=== PATIENT | male | born 1950 | race Caucasian/White ===

== ENCOUNTER 2022-07-09 08:37 | Emergency (ER) | payer MEDICARE, SELFPAY ==
[2022-07-09] MEDS ORDERED: ONDANSETRON 4 MG/2 ML VIAL ONE (09:09)
[2022-07-09 09:14] LABS: Absolute Lymphocytes (CBC) 1.2 K/uL (0.7-4.9); Hematocrit 48.5 % (39.6-49.0); Lymphocytes % 11.3 % (15.3-44.8); MCV 94.6 fL (80-100); MPV 7.8 fL (7.6-11.3); RBC Red Blood Cell Count 5.13 M/uL (4.33-5.43)
[2022-07-09 09:25] LABS: Potassium 3.6 mmol/L (3.5-5.1)
[2022-07-09 09:41] LABS: CKMB Creatine Kinase MB 2.7 ng/mL (1.0-3.6); Protime INR 0.98
[2022-07-09 09:43] LABS: Albumin 3.7 g/dL (3.4-5.0); Bilirubin Direct 0.2 mg/dL (0-0.2); Bilirubin Total 0.6 mg/dL (0.2-1.0); Magnesium 1.9 mg/dL (1.8-2.4); Protein, Total 7.6 g/dL (6.4-8.2); Troponin High Sensitivity 50.8 pg/mL (<58.9)
--- NOTE | 2022-07-09 10:01 | RAD REPORT ---
EXAM DESCRIPTION: CT - Head C Spine Cap Wo Con - 07/09/2022 9:19 am CLINICAL HISTORY: Trauma, head and neck injury. Chest, abdomen and pelvis pain. fall COMPARISON: No comparisons TECHNIQUE: CT head without contrast. CT cervical spine without contrast with coronal and sagittal reformatted images. CT chest, abdomen and pelvis without contrast with coronal and sagittal reformatted images of the spi ne. All CT scans are performed using dose optimization technique as appropriate and may include automated exposure control or mA/KV adjustment according to patient size. FINDINGS: CT HEAD WITHOUT CONTRAST: Along the left convexity there is a thin 2-3 mm extra-axial hyperdense collection likely representing small subdural hematoma. Advanced brain atrophy with advanced periventricular and deep white matter chronic microvascular ischemia also seen. No midline shift evident. No hydrocephalus. The paranasal sinuses and mastoids are essentially clear. There is a mottled appearance to the calvar ium. Evidence of prior left posterior calvarium marika-hole. CT CERVICAL SPINE WITHOUT CONTRAST: No fracture or subluxation. Moderate midcervical degenerative changes. The prevertebral soft tissues are normal in thickness.Left carotid atherosclerosis. CT CHEST, ABDOMEN, PELVIS WITHOUT CONTRAST: NOTE: Lack of contrast is a significant limitation in the assessment of trauma related findings. Spec ifically, solid organ, vascular and bowel evaluation is significantly limited. Mild opacities are present in both lung bases most compatible with atelectasis.No pneumothorax or per icardial/pleural fluid. No evidence of intra-abdominal visceral injury, free fluid or free air is seen within the above detai led limitations. Moderate fat containing inguinal hernia. No concerning pelvic findings. There is evidence of a mild fracture involving the lateral right eleventh rib. IMPRESSION: 2-3 mm hyperdense collection along the left convexity likely acute subdural hematoma. No midline shift. Lateral right eleventh rib fracture noted, age indeterminate. Findings were discussed with in the emergency room 10 a.m. 07/09/2022 by telephone.
--- NOTE | 2022-07-09 10:11 | RAD REPORT ---
EXAM DESCRIPTION: RAD - C Spine Single View - 07/09/2022 9:45 am CLINICAL HISTORY: fall Trauma, fall COMPARISON: No comparisons FINDINGS: Cross-table lateral projection only submitted, limiting assessment. Moderate multilevel ce rvical degenerative changes are noted. No prevertebral swelling seen.
--- NOTE | 2022-07-09 10:12 | RAD REPORT ---
EXAM DESCRIPTION: RAD - Elbow Left 3 View - 07/09/2022 9:45 am CLINICAL HISTORY: PAIN COMPARISON: No comparisons FINDINGS: Small laceration is seen in the olecranon region. No acute fracture or dislocation.
--- NOTE | 2022-07-09 10:13 | RAD REPORT ---
EXAM DESCRIPTION: RAD - Pelvis - 07/09/2022 9:45 am CLINICAL HISTORY: fall Fall, pelvic pain COMPARISON: No comparisons FINDINGS: No evidence of fracture or dislocation seen.
[2022-07-09 10:22] LABS: SARS-CoV-2 Antigen Rapid Res Negative (Negative)
[2022-07-09] MEDS ORDERED: CEFAZOLIN SODIUM 1 GM/VIAL ONE (10:46)
[2022-07-09] MEDS ORDERED: TETANUS & DIPHTHERIA TOX,ADULT 0.5 ML VIAL ONE (10:46)
[2022-07-09] MEDS ORDERED: NA CHLORIDE 0.9% 100 ML IV ONE ×2 (10:47→11:11)
[2022-07-09] MEDS ORDERED: LIDOCAINE 1% MPF 2 ML AMPULE ONE (10:56)
--- NOTE | 2022-07-09 11:08 | RAD REPORT ---
EXAM DESCRIPTION: CT - Chest For Pe Angio - 07/09/2022 10:39 am CLINICAL HISTORY: Chest pain. Chest trauma COMPARISON: No comparisons TECHNIQUE: CT angiogram of the pulmonary arteries was performed with MIP. All CT scans are performed using dose optimization technique as appropriate and may include automated exposure control or mA/KV adjustment according to patient size. FINDINGS: No evidence of pulmonary thromboembolism. Thoracic aortic assessment is suboptimal due to contrast bolus. The heart is enlarged. Mild interstitial pulmonary edema seen. Trace pleural fluid bilaterally slightly greater on the right. The inferior thoracic ribs not included. There is no fracture seen within the included chest region. IMPRESSION: No evidence of pulmonary thromboembolism. Mild CHF pattern.
[2022-07-09] MEDS ORDERED: LEVETIRACETAM 500 MG/5 ML VIAL IV ONE (11:11)
--- NOTE | 2022-07-09 11:22 | ER ---
Nurse's Notes [facility] Name: Elie Rashid Age: 71 yrs Sex: Male : 1950 Arrival Date: 07/09/2022 Time: 08:42 Bed 4 Private MD: Diagnosis: History of falling;Fall on same level, unspecified;Conductive hearing loss, unspecified;Laceration without foreign body of other part of head, initial encounter;Laceration without foreign body of left elbow;Traumatic subdural hemorrhage-left 3 mm Presentation: 07/09 08:30 Chief complaint: EMS states: toned out to PT home for a fall. family found PT on tp1 ground, they believe he fell at 3 am. PT main complaint is dizziness. EMS reports PT hit head and has no memory of fall. PT has laceration to carty of head and left elbow, bleeding controlled. EMS reports dysrhythmia on EKG. 08:30 Method Of Arrival: EMS: [facility] tp1 08:30 Coronavirus screen: Vaccine status: Patient reports being unvaccinated. Ebola Screen: tp1 Patient denies exposure to infectious person. Patient denies travel to an Ebola-affected area in the 21 days before illness onset. Initial Sepsis Screen: Does the patient meet any 2 criteria? RR > 20 per min. Does the patient have a suspected source of infection? No. Patient's initial sepsis screen is negative. Risk Assessment: Do you want to hurt yourself or someone else? Patient reports no desire to harm self or others. Onset of symptoms was July 09, 2022. 08:30 Acuity: DANILO 2 tp1 Triage Assessment: 08:30 General: Appears in no apparent distress. uncomfortable, Behavior is cooperative, tp1 anxious. Pain: Complains of pain in left elbow Pain does not radiate. Pain currently is 10 out of 10 on a pain scale. Pain began 3 am. 08:30 EENT: Nares are clear. Neuro: Level of Consciousness is awake, alert, obeys commands, tp1 Oriented to person, place, time, situation, Reports dizziness. Cardiovascular: Denies chest pain, shortness of breath, Capillary refill < 3 seconds in bilateral fingers Patient's skin is warm and dry. Respiratory: Airway is patent Respiratory effort is even, unlabored. GI: Abdomen is flat, non-distended, Reports nausea, vomiting. : No signs and/or symptoms were reported regarding the genitourinary system. Derm: Skin is pink, warm \T\ dry. Musculoskeletal: Circulation, motion, and sensation intact. Injury Description: Abrasion sustained to scalp Laceration sustained to left elbow a small amount of bleeding noted at this time. Historical: - Allergies: 08:55 No Known Allergies; tp1 - Home Meds: 08:55 lamotrigine oral [Active]; quetiapine oral [Active]; tp1 - PMHx: 08:55 Seizure; brain cancer; lung cancer; skin cancer; tp1 - Immunization history:: Client reports having NOT received the Covid vaccine. - Social history:: Smoking status: unknown. - Family history:: not pertinent. Screenin:18 Abuse screen: Denies threats or abuse. Denies injuries from another. Nutritional tp1 screening: No deficits noted. Tuberculosis screening: No symptoms or risk factors identified. Fall Risk Fall in past 12 months (25 points). No secondary diagnosis (0 pts). IV access (20 points). Ambulatory Aid- None/Bed Rest/Nurse Assist (0 pts). Gait- Normal/Bed Rest/Wheelchair (0 pts) Mental Status- Oriented to own ability (0 pts). Total Rangel Fall Scale indicates High Risk Score (45 or more points). Fall prevention measures have been instituted. Side Rails Up X 2 Frequent Obs/Assessments Occuring As available patient and family educated on Fall Prevention Program and Strategies. Primary Survey: 08:35 NO uncontrolled hemorrhage observed. A: The client is alert. No supplemental oxygen in vg1 use on arrival. Breathing/Chest: Spontaneous respiratory effort, equal unlabored respirations, breath sounds clear bilaterally, regular pattern, symmetrical chest rise and fall. Respiratory effort: spontaneous, unlabored, Breath sounds: clear, bilaterally. Circulation: Hemorrhage: No external hemorrhage noted. Pulses: palpable right radial artery, right dorsalis pedis artery, left radial artery and left dorsalis pedis artery. Skin color: pink. Disability Pupils are equal, round, reactive to light and accommodation. Client is alert. Exposure/Environment: All clothing and personal items were removed. Forensic evidence collection is not deemed to be indicated at this time. Items placed in patient belonging bag. There is no evidence of uncontrolled external bleeding. Obvious injury(ies) are noted at this time: appears to have an abrasion to Left side of scalp and laceration to Left elbow; bleeding contol A warming method has been applied: A warm blanket has been provided to the patient. Secondary Survey: 08:35 HEENT: Head Other appears to have an abrasion to left side of scalp Face No vg1 injury/deformity. Gastrointestinal: Abdomen is soft, Patient vomited prior to arrival. Patient reports Nausea. : No deficits noted. Urine is clear. Musculoskeletal: Capillary refill < 3 seconds, in bilateral fingers. pt c/o Left elbow pain; appears to have a laceration to Left elbow. Assessment: 08:30 Reassessment: see triage notes. tp1 09:07 Reassessment: received VO from to administer Zofran 4mg IVP X1. tp1 09:18 Reassessment: escorted to CT via stretcher by [employer]. tp1 09:53 Reassessment: returned from CT. tp1 09:55 Reassessment: Patient appears in no apparent distress at this time. No changes from tp1 previously documented assessment. Patient and/or family updated on plan of care and expected duration. Pain level reassessed. Patient is alert, oriented x 3, equal unlabored respirations, skin warm/dry/pink. continues to CO dizziness Patient denies pain at this time. 10:37 Reassessment: report given to Greg PARKS. tp1 10:55 Reassessment: Patient appears in no apparent distress at this time. No changes from tp1 previously documented assessment. Patient is alert, oriented x 3, equal unlabored respirations, skin warm/dry/pink. Patient denies pain at this time. 10:56 Reassessment: PT tolerated suture repair to the left elbow well, gauze and coband tp1 dressing applied. 11:16 Reassessment: Ancef infusion paused, Keppra infusion started. tp1 11:44 Reassessment: Ancef restarted. tp1 Vital Signs: 08:30 BP 181 / 79; Pulse 62; Resp 23; Temp 97.7(TE); Pulse Ox 100% on R/A; Weight 85 kg; tp1 Height 6 ft. 2 in. (187.96 cm); 10:00 BP 143 / 64; Pulse 60; Resp 22; Pulse Ox 96% on R/A; tp1 11:00 BP 143 / 100; Pulse 63; Resp 17; Pulse Ox 96% on R/A; tp1 12:08 BP 147 / 87; Pulse 55; Resp 18; Pulse Ox 96% on R/A; tp1 08:30 Body Mass Index 24.06 (85.00 kg, 187.96 cm) tp1 [place] Coma Score: 08:35 Eye Response: spontaneous(4). Verbal Response: oriented(5). Motor Response: obeys vg1 commands(6). Total: 15. 10:00 Eye Response: spontaneous(4). Verbal Response: oriented(5). Motor Response: obeys tp1 commands(6). Total: 15. 11:00 Eye Response: spontaneous(4). Verbal Response: oriented(5). Motor Response: obeys tp1 commands(6). Total: 15. 12:08 Eye Response: spontaneous(4). Verbal Response: oriented(5). Motor Response: obeys tp1 commands(6). Total: 15. Trauma Score (Adult): 08:35 Eye Response: spontaneous(1); Verbal Response: oriented(1); Motor Response: obeys vg1 commands(2); Systolic BP: > 89 mm Hg(4); Respiratory Rate: 10 to 29 per min(4); Flora Score: 15; Trauma Score: 12 10:00 Eye Response: spontaneous(1); Verbal Response: oriented(1); Motor Response: obeys tp1 commands(2); Systolic BP: > 89 mm Hg(4); Respiratory Rate: 10 to 29 per min(4); [place] Score: 15; Trauma Score: 12 11:00 Eye Response: spontaneous(1); Verbal Response: oriented(1); Motor Response: obeys tp1 commands(2); Systolic BP: > 89 mm Hg(4); Respiratory Rate: 10 to 29 per min(4); [place] Score: 15; Trauma Score: 12 12:08 Eye Response: spontaneous(1); Verbal Response: oriented(1); Motor Response: obeys tp1 commands(2); Systolic BP: > 89 mm Hg(4); Respiratory Rate: 10 to 29 per min(4); Flora Score: 15; Trauma Score: 12 ED Course: 08:35 Patient has correct armband on for positive identification. Placed in gown. Bed in low vg1 position. Call light in reach. Side rails up X2. 08:35 Patient maintains SpO2 saturation greater than 95% on room air. vg1 08:42 Patient arrived in ED. eb 08:49 Martina Hart, CHARLY is Primary Nurse. tp1 08:50 Kike Anderson MD is Attending Physician. aruna 08:54 Triage completed. tp1 09:00 EKG done. Maintain EMS IV. Dressing intact. Good blood return noted. Site clean \T\ dry. tp1 Gauge \T\ site: 20 G L FA. 09:20 CT Traumagram (Head C Spine CAP wo con) In Process Unspecified. EDMS 09:47 Elbow Left 3 View XRAY In Process Unspecified. EDMS 09:47 XRAY C Spine Single View In Process Unspecified. EDMS 09:47 XRAY Chest (1 view) In Process Unspecified. EDMS 09:47 XRAY Pelvis In Process Unspecified. EDMS 09:53 initiated a transfer with [place] from the [facility]. eb 09:57 connected the neurosurgeon hotel concierge for [facility] with for patient transfer consultation. 10:00 administrative approval given by [place] Rowe Rn/ patient has been accepted to [facility] ER/ Dr. Raygoza has accepted the patient in transfer/ report to be called to [phone]. 10:05 COVID swab sent to lab. tp1 10:06 SARS RAPID Sent. tp1 10:41 CT Chest For PE Angio In Process Unspecified. EDMS 10:56 Assist provider with laceration repair on left elbow using Set up tray. Performed by tp1 Kike Anderson MD Dressed with 4X4s, coband Patient tolerated well. 11:50 US Extremity Venous W Compression Nitin In Process Unspecified. EDMS 12:08 Patient transferred, IV remains in place. tp1 Administered Medications: 09:11 Drug: Zofran (Ondansetron) 4 mg Route: IVP; Site: left forearm; tp1 12:08 Follow up: Response: Nausea is decreased tp1 11:00 Drug: Tetanus Toxoid,Adsorbed 0.5 ml {Global Manager: [employer]. Exp: 02/06/2024. Lot tp1 #: [id number]. } Route: IM; Site: right deltoid; 12:07 Follow up: Response: No adverse reaction tp1 11:05 Drug: Ancef (cefazolin) 1 grams Route: IVPB; Site: left femoral; tp1 12:07 Follow up: IV Status: Infusion continued upon transfer tp1 11:16 Drug: Keppra (levETIRAcetam) 1000 mg Route: IV; Rate: per protocol; Site: left forearm; tp1 11:32 Follow up: IV Status: Completed infusion; IV Intake: 100ml vg1 11:19 CANCELLED (Physician Discretion): Lidocaine (1 %) 5 ml 5 ml Infiltration once; to tp1 bedside 11:40 Drug: Lasix (furosemide) 20 mg Route: IVP; Site: left forearm; tp1 12:06 Follow up: Response: No adverse reaction tp1 Medication: 11:32 Vaccine Information Statement (VIS) provided today. Questions and/or concerns tp1 addressed. VIS edition date: April 24, 2021. Intake: 11:32 IV: 100ml; Total: 100ml. vg1 Outcome: 11:22 ER care complete, transfer ordered by MD. valdovinos 12:09 Transferred by ground EMS to [facility], Transfer form completed. tp1 12:09 Condition: good 12:09 Discharge instructions given to patient, friend, Instructed on discharge instructions, Demonstrated understanding of instructions. 12:10 Patient left the ED. tp1 Signatures: Dispatcher [employer] EDMS Kike Anderson MD MD cha Botello, Elizabeth eb Garcia, Victoria, RN RN vg1 Martina Hart RN RN tp1 Corrections: (The following items were deleted from the chart) 08:56 08:30 Pulse 62bpm; Resp 23bpm; Pulse Ox 100% RA; Temp 97.7F Temporal; 85 kg; Height 6 tp1 ft. 2 in.; BMI: 24.0; tp1 09:18 08:30 Pain: Complains of pain in left elbow tp1 tp1 09:19 08:30 EENT: Nares are clear tp1 tp1 10:01 09:50 Reassessment: Patient appears in no apparent distress at this time. No changes tp1 from previously documented assessment. Patient and/or family updated on plan of care and expected duration. Pain level reassessed. Patient is alert, oriented x 3, equal unlabored respirations, skin warm/dry/pink. continues to CO dizziness Patient denies pain at this time. tp1 10:02 09:54 Reassessment: returned from CT tp1 tp1 12:07 12:07 Response: No adverse reaction; IV Status: Completed infusion tp1 tp1
--- NOTE | 2022-07-09 11:22 | EDPHYS ---
Physician Documentation [facility] Name: Elie Rashid Age: 71 yrs Sex: Male : 1950 Arrival Date: 07/09/2022 Time: 08:42 Bed 4 Private MD: ED Physician Kike Anderson HPI: 07/09 11:03 This 71 yrs old Male presents to ER via EMS with complaints of Fall Injury, aruna Elbow Injury. 11:12 Details of fall: The patient fell from an upright position, while walking. Onset: The aruna symptoms/episode began/occurred last night. Associated injuries: The patient sustained injury to the head, left elbow, swelling. Severity of symptoms: At their worst the symptoms were mild, in the emergency department the symptoms are unchanged. The patient has not experienced similar symptoms in the past. Historical: - Allergies: 08:55 No Known Allergies; tp1 - Home Meds: 08:55 lamotrigine oral [Active]; quetiapine oral [Active]; tp1 - PMHx: 08:55 Seizure; brain cancer; lung cancer; skin cancer; tp1 - Immunization history:: Client reports having NOT received the Covid vaccine. - Social history:: Smoking status: unknown. - Family history:: not pertinent. ROS: 11:12 Constitutional: Negative for fever, chills, and weight loss, Eyes: Negative for injury, aruna pain, redness, and discharge, ENT: Negative for injury, pain, and discharge, Neck: Negative for injury, pain, and swelling, Cardiovascular: Negative for chest pain, palpitations, and edema, Respiratory: Negative for shortness of breath, cough, wheezing, and pleuritic chest pain, Abdomen/GI: Negative for abdominal pain, nausea, vomiting, diarrhea, and constipation, Back: Negative for injury and pain, : Negative for injury, bleeding, discharge, and swelling, Skin: Negative for injury, rash, and discoloration, Neuro: Negative for headache, weakness, numbness, tingling, and seizure, Psych: Negative for depression, anxiety, suicide ideation, homicidal ideation, and hallucinations, Allergy/Immunology: Negative for hives, rash, and allergies, Endocrine: Negative for neck swelling, polydipsia, polyuria, polyphagia, and marked weight changes, Hematologic/Lymphatic: Negative for swollen nodes, abnormal bleeding, and unusual bruising. 11:12 MS/extremity: Positive for decreased range of motion, laceration, pain, of the scalp and left arm. Exam: 11:12 Constitutional: This is a well developed, well nourished patient who is awake, alert, aruna and in no acute distress. Head/Face: Normocephalic, atraumatic. Eyes: Pupils equal round and reactive to light, extra-ocular motions intact. Lids and lashes normal. Conjunctiva and sclera are non-icteric and not injected. Cornea within normal limits. Periorbital areas with no swelling, redness, or edema. ENT: Nares patent. No nasal discharge, no septal abnormalities noted. Tympanic membranes are normal and external auditory canals are clear. Oropharynx with no redness, swelling, or masses, exudates, or evidence of obstruction, uvula midline. Mucous membranes moist. Neck: Trachea midline, no thyromegaly or masses palpated, and no cervical lymphadenopathy. Supple, full range of motion without nuchal rigidity, or vertebral point tenderness. No Meningismus. Chest/axilla: Normal chest wall appearance and motion. Nontender with no deformity. No lesions are appreciated. Cardiovascular: Regular rate and rhythm with a normal S1 and S2. No gallops, murmurs, or rubs. Normal PMI, no JVD. No pulse deficits. Respiratory: Lungs have equal breath sounds bilaterally, clear to auscultation and percussion. No rales, rhonchi or wheezes noted. No increased work of breathing, no retractions or nasal flaring. Abdomen/GI: Soft, non-tender, with normal bowel sounds. No distension or tympany. No guarding or rebound. No evidence of tenderness throughout. Back: No spinal tenderness. No costovertebral tenderness. Full range of motion. Male : Normal genitalia with no discharge or lesions. MS/ Extremity: Pulses equal, no cyanosis. Neurovascular intact. Full, normal range of motion. Psych: Awake, alert, with orientation to person, place and time. Behavior, mood, and affect are within normal limits. 11:12 Skin: Appearance: Color: normal in color, Temperature: normal temperature, Moisture: normal moisture, petechiae, not noted, ecchymosis, not noted, abscess, not appreciated, cellulitis, is not appreciated, induration, is not appreciated, injury, laceration(s), the wound is approximately 1 cm(s), with a depth of .25 cm(s), of the left side of the back of head, the second wound is approximately 1.5 cm(s), with a depth of .25 cm(s), of the left elbow. 11:18 ECG was reviewed by the Attending Physician. aruna Vital Signs: 08:30 BP 181 / 79; Pulse 62; Resp 23; Temp 97.7(TE); Pulse Ox 100% on R/A; Weight 85 kg; tp1 Height 6 ft. 2 in. (187.96 cm); 10:00 BP 143 / 64; Pulse 60; Resp 22; Pulse Ox 96% on R/A; tp1 11:00 BP 143 / 100; Pulse 63; Resp 17; Pulse Ox 96% on R/A; tp1 12:08 BP 147 / 87; Pulse 55; Resp 18; Pulse Ox 96% on R/A; tp1 08:30 Body Mass Index 24.06 (85.00 kg, 187.96 cm) tp1 Flora Coma Score: 08:35 Eye Response: spontaneous(4). Verbal Response: oriented(5). Motor Response: obeys vg1 commands(6). Total: 15. 10:00 Eye Response: spontaneous(4). Verbal Response: oriented(5). Motor Response: obeys tp1 commands(6). Total: 15. 11:00 Eye Response: spontaneous(4). Verbal Response: oriented(5). Motor Response: obeys tp1 commands(6). Total: 15. 12:08 Eye Response: spontaneous(4). Verbal Response: oriented(5). Motor Response: obeys tp1 commands(6). Total: 15. Trauma Score (Adult): 08:35 Eye Response: spontaneous(1); Verbal Response: oriented(1); Motor Response: obeys vg1 commands(2); Systolic BP: > 89 mm Hg(4); Respiratory Rate: 10 to 29 per min(4); Flora Score: 15; Trauma Score: 12 10:00 Eye Response: spontaneous(1); Verbal Response: oriented(1); Motor Response: obeys tp1 commands(2); Systolic BP: > 89 mm Hg(4); Respiratory Rate: 10 to 29 per min(4); Flora Score: 15; Trauma Score: 12 11:00 Eye Response: spontaneous(1); Verbal Response: oriented(1); Motor Response: obeys tp1 commands(2); Systolic BP: > 89 mm Hg(4); Respiratory Rate: 10 to 29 per min(4); [place] Score: 15; Trauma Score: 12 12:08 Eye Response: spontaneous(1); Verbal Response: oriented(1); Motor Response: obeys tp1 commands(2); Systolic BP: > 89 mm Hg(4); Respiratory Rate: 10 to 29 per min(4); [place]ill[place] Score: 15; Trauma Score: 12 Laceration: 11:22 Wound Repair of 1.5cm ( 0.6in ) subcutaneous laceration to right parietal area. aruna Irregularly shaped.. Distal neuro/vascular/tendon intact. Anesthesia: none with 0 mls of 1% lidocaine. Wound prep: Simple cleansing with betadine by me. Skin closed with 2 noé Keldron using staple gun. Dressed with Neosporin. Patient tolerated well. 11:23 Wound Repair of 1cm ( 0.4in ) subcutaneous laceration to left elbow. Irregularly aruna shaped.. Distal neuro/vascular/tendon intact. Anesthesia: none with 0 mls of none. Wound prep: Simple cleansing with betadine by me. Skin closed with 1 5-0 Prolene using interrupted sutures and sterile technique. Dressed with Neosporin, pressure dressing, non-adherent dressing. Patient tolerated well. MDM: 08:50 Patient medically screened. aruna 11:12 Differential diagnosis: closed head injury, contusion, fracture, laceration, multiple aruna trauma, sprain, strain. Data reviewed: vital signs, nurses notes, EMS record, lab test result(s), EKG, radiologic studies, CT scan, plain films. 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 Test interpretation: by ED physician or midlevel provider: ECG, plain radiologic studies. Counseling: I had a detailed discussion with the patient and/or guardian regarding: the historical points, exam findings, and any diagnostic results supporting the discharge/admit diagnosis, lab results, radiology results, the need to transfer to another facility, for higher level of care, [facility] does not immediately have the required specialist. 07/09 08:59 Order name: Basic Metabolic Panel; Complete Time: 09:49 tp1 07/09 08:59 Order name: CBC with Diff; Complete Time: 09:49 tp1 07/09 08:59 Order name: Type And Screen tp1 07/09 09:09 Order name: CK; Complete Time: 09:49 1 07/09 09:09 Order name: Ckmb; Complete Time: 09:49 1 07/09 09:14 Order name: Troponin High Sensitivity; Complete Time: 09:49 tp1 07/09 09:14 Order name: DD; Complete Time: 10:19 tp1 07/09 09:14 Order name: LFT's; Complete Time: 09:49 tp1 07/09 09:14 Order name: Magnesium; Complete Time: 09:49 tp1 07/09 09:14 Order name: NT PRO-BNP; Complete Time: 09:49 tp1 07/09 09:14 Order name: PT-INR; Complete Time: 10:19 [facility] 07/09 09:52 Order name: SARS RAPID; Complete Time: 11:10 07/09 11:24 Order name: Antibody Identification [facility] 07/09 11:33 Order name: ABO/RH no charge [facility] 07/09 08:59 Order name: CT Traumagram (Head C Spine CAP wo con); Complete Time: 10:19 tp1 07/09 08:59 Order name: Labs collected and sent; Complete Time: 09:14 [facility] 07/09 09:00 Order name: Elbow Left 3 View XRAY; Complete Time: 10:19 [facility] 07/09 09:11 Order name: XRAY C Spine Single View; Complete Time: 10:19 [facility] 07/09 09:11 Order name: XRAY Chest (1 view) [facility] 07/09 09:11 Order name: XRAY Pelvis; Complete Time: 10:19 [facility] 07/09 09:15 Order name: EKG - Nurse/Tech; Complete Time: 09:15 tp1 07/09 09:15 Order name: Cardiac monitoring; Complete Time: 09:15 [facility] 07/09 10:14 Order name: CT Chest For PE Angio; Complete Time: 11:10 07/09 10:14 Order name: US Extremity Venous W Compression Nitin eb 07/09 10:21 Order name: Wound Care; Complete Time: 11:15 aruna 07/09 11:11 Order name: Dressing - Wound; Complete Time: 11:21 aruna 07/09 11:11 Order name: Gloves, Sterile; Complete Time: 11:21 aruna 07/09 11:11 Order name: Prolene, Sutures; Complete Time: 11:21 aruna 07/09 11:11 Order name: Setup Suture Tray; Complete Time: 11:21 aruna EC:18 Rate is 68 beats/min. Rhythm is regular. QRS [place] is Normal. MT interval is normal. QRS aruna interval is normal. QT interval is normal. No Q waves. T waves are Normal. No ST changes noted. Clinical impression: Abnormal EKG without significant change and No evidence of ischemia. Interpreted by me. Reviewed by me. Administered Medications: 09:11 Drug: Zofran (Ondansetron) 4 mg Route: IVP; Site: left forearm; tp1 12:08 Follow up: Response: Nausea is decreased tp1 11:00 Drug: Tetanus Toxoid,Adsorbed 0.5 ml {Event Host: [employer]. Exp: 02/06/2024. Lot tp1 #: [id number]. } Route: IM; Site: right deltoid; 12:07 Follow up: Response: No adverse reaction tp1 11:05 Drug: Ancef (cefazolin) 1 grams Route: IVPB; Site: left femoral; tp1 12:07 Follow up: IV Status: Infusion continued upon transfer tp1 11:16 Drug: Keppra (levETIRAcetam) 1000 mg Route: IV; Rate: per protocol; Site: left forearm; tp1 11:32 Follow up: IV Status: Completed infusion; IV Intake: 100ml vg1 11:19 CANCELLED (Physician Discretion): Lidocaine (1 %) 5 ml 5 ml Infiltration once; to tp1 bedside 11:40 Drug: Lasix (furosemide) 20 mg Route: IVP; Site: left forearm; tp1 12:06 Follow up: Response: No adverse reaction tp1 Disposition Summary: 07/09/22 11:22 Transfer Ordered Transfer Location: [facility] aruna Reason: Higher level of care aruna Condition: Fair aruna Problem: new aruna Symptoms: have improved aruna Accepting Physician: to [facility](07/09/22 12:10) tp1 Diagnosis - History of falling aruna - Fall on same level, unspecified aruna - Conductive hearing loss, unspecified aruna - Laceration without foreign body of other part of head, initial encounter aruna - Laceration without foreign body of left elbow aruna - Traumatic subdural hemorrhage - left 3 mm aruna Forms: - Medication Reconciliation Form aruna - SBAR form aruna Signatures: Dispatcher [employer] EDKike Frank MD MD cha Mickail, Joel, PA PA jmm Parker, Tiffany, RN RN tp1 Diane Humphrey RN vg1 Corrections: (The following items were deleted from the chart) 11:19 11:11 Lidocaine (1 %) 5 ml 5 ml Infiltration once; to bedside ordered. [facility] tp1 12:10 11:22 to [facility] tp1
[2022-07-09] MEDS ORDERED: FUROSEMIDE 20 MG/ 2ML VIAL ONE (11:38)
--- NOTE | 2022-07-09 12:06 | RAD REPORT ---
EXAM DESCRIPTION: US - Extrem Venous W Compress Nitin - 07/09/2022 11:48 am CLINICAL HISTORY: fall/ dizzy/ elevated ddimer Bilateral leg edema and swelling. COMPARISON: No comparisons TECHNIQUE: Real-time sonographic interrogation of the left and right lower extremity deep venous sys tems was performed. FINDINGS: Normal compressibility, flow augmentation, phasic flow and spontaneous flow is identified in both the left and right lower extremity deep venous systems. IMPRESSION: No sonographic evidence of left or right lower extremity deep venous thrombosis.
--- NOTE | 2022-07-09 12:15 | RAD REPORT ---
EXAM DESCRIPTION: RAD - Chest Single View - 07/09/2022 11:11 am CLINICAL HISTORY: fall Chest pain. COMPARISON: Chest For Pe Angio dated 07/09/2022 FINDINGS: Portable technique limits examination quality. Mild pulmonary edema. The heart is moderately enlarged. No displaced fractures.Surgical clips are see n right chest. IMPRESSION: Mild CHF.
[2022-07-09 12:32] VITALS: BP 147/87; O2SAT 96
--- NOTE | 2022-07-12 18:45 | EKG ---
Test Date: 2022-07-09 Test Time: 08:36:14 Postdoctoral Research Fellow: MEASUREMENT RESULTS: Intervals: Rate: 68 CA: 206 QRSD: 168 QT: 482 QTc: 512 [place]: P: 60 CA: 206 QRS: -67 T: 110 INTERPRETIVE STATEMENTS: Sinus rhythm with frequent premature ventricular complexes in a pattern of bigeminy Possible Left atrial enlargement Left axis deviation Left ventricular hypertrophy with QRS widening and repolarization abnormality Inferior infarct, age undetermined Abnormal ECG No previous ECG available for comparison Electronically Signed On 07-12-22 18:39:51 CDT by Reggie Lafleur
== END 2022-07-09 12:10 | disposition short-term general hospital (02) ==
LOC: ER 08:37
PROC: 0JQ00ZZ Repair Scalp Subcutaneous Tissue and Fascia, Open Approach (ICD-10-PCS; principal; 2022-07-09)
PROC: 0JQH0ZZ Repair Left Lower Arm Subcutaneous Tissue and Fascia, Open Approach (ICD-10-PCS; 2022-07-09)
DX: S01.81XA Laceration without foreign body of other part of head, initial encounter (principal); S51.012A Laceration without foreign body of left elbow, initial encounter; S06.5XAA Traumatic subdural hemorrhage with loss of consciousness status unknown, initial encounter; H90.2 Conductive hearing loss, unspecified; G95.19 Other vascular myelopathies; W18.30XA Fall on same level, unspecified, initial encounter; Y93.9 Activity, unspecified; Y92.019 Unspecified place in single-family (private) house as the place of occurrence of the external cause; Z20.822 Contact with and (suspected) exposure to COVID-19; Z23 Encounter for immunization
CPT/HCPCS: 93005; 85025; 80048; 36415; 86900; 83735; 86850; 82550; 85610; 86902; 86870 ×2; 86901; 85379; 80076; 84484; 82553; 83880; 70450; 71250; 72125; 71275; 71045; 72020; 72170; 73080; 90471; 93970; 90714; 99285; 87811; 12001 ×2; Q9967; J1940; J1953; J2405; J0690